=== PATIENT | male | born 1990 | race Caucasian/White ===

== ENCOUNTER 2017-03-12 06:16 | Emergency (ER) | payer BC, OTHER ==
--- NOTE | 2017-03-12 07:10 | ER Document Report ---
ED Neck/Back Problem - General Mode of Arrival: Ambulatory Information source: Patient TRAVEL OUTSIDE OF THE [place] IN LAST 30 DAYS: No - HPI Patient complains to provider of: Neck - swelling Associated symptoms: Other - See above - General Chief Complaint: Neck Swelling Stated Complaint: NECK PAIN Time Seen by Provider: 03/12/17 06:40 Notes: Patient is a 26 year old male who presents to the emergency department complaining of neck swelling onset this morning. Patient reports he woke up to take his dog out and noticed swelling underneath his jaw. Patient reports he has a history of testicular cancer 6 years ago that presented with pain. Patient denies difficulty breathing, mouth pain, dental problems, sore throat, ear pain, and cough. (CHINO GOMEZ) - Related Data Allergies/Adverse Reactions: Sulfa (Sulfonamide Antibiotics) Allergy (Verified 03/12/17 06:24) Past Medical History - General Information source: Patient - Social History Smoking Status: Unknown if Ever Smoked Family History: Reviewed & Not Pertinent Patient has suicidal ideation: No Patient has homicidal ideation: No Malignancy Medical History: Reports Hx Testicular Cancer Review of Systems - Review of Systems EENT: See HPI, Other - neck swelling. denies: Ear pain, Throat pain, Difficulty swallowing, Mouth pain, Dental problem Respiratory: denies: Cough, Other - difficulty breathing Physical Exam - Vital signs Interpretation: Normal - General General appearance: Appears well, Alert - HEENT Head: Normocephalic, Atraumatic Ears: Normal External canal: Normal Tympanic membrane: Normal Mouth/Lips: Normal Pharynx: Normal - Respiratory Respiratory status: No respiratory distress - Extremities General upper extremity: Normal inspection General lower extremity: Normal inspection - Neurological Neuro grossly intact: Yes Cognition: Normal Orientation: AAOx4 Vitaly Coma Scale Eye Opening: Spontaneous Vitaly Coma Scale Verbal: Oriented Jean Coma Scale Motor: Obeys Commands Jean Coma Scale Total: 15 Speech: Normal - Psychological Associated symptoms: Normal affect, Normal mood - Skin Skin Temperature: Warm Skin Moisture: Dry Skin Color: Normal Course - Re-evaluation Re-evalutation: 03/12/17 08:53 Patient presents emergency department woke up this morning with small lymph nodes under his submandibular region. It is painless no fevers chills cough difficulty breathing swallowing on examination mildly swollen lymph node under the mandibular region which is not red hot or swollen is mobile. Trachea is midline neck is supple there is no trismus stridor or drooling full range of motion of neck without any difficulties no intraoral lesions or dental problems. CT scan shows adenopathy. Strep test is negative. Concern at this point is that the patient has a history of cancer discussed this nonspecific lymphadenopathy. Have him follow-up with hematology oncology may need further assessment and/or biopsy if they have concerns. Started on an antibiotic and gave him the name for information and discussed reasons for ED return sooner I am on (SARAH BETH LOPEZ) - Vital Signs Vital signs: Temp Pulse Resp BP Pulse Ox 97.4 F 78 18 142/91 H 98 03/12/17 09:15 03/12/17 09:15 03/12/17 09:15 03/12/17 09:15 03/12/17 09:15 Discharge - Discharge Clinical Impression: Adenopathy Condition: Stable Disposition: HOME, SELF-CARE Additional Instructions: Lymphadenopathy You have enlargement of lymph glands, called lymphadenopathy. Lymph glands filter tissue fluids. They help to fight infection. Most of the time, enlarged lymph glands are not serious. Lymph glands may react to a viral or bacterial infection by becoming swollen and painful. When the infection goes away, the glands shrink. Sometimes a lymph gland will remain enlarged for a long time after an infection. Occasionally, a lymph gland may be overwhelmed by infection and form an abscess. If an enlarged lymph gland has signs that are suspicious for tumor, the doctor will recommend a biopsy. A suspicious gland usually is NOT painful, grows very slowly, and is rock-hard to touch. See the doctor or return if there is increasing swelling and redness, high fever, difficulty breathing, or any other change for the worse. Prescriptions: Amox Tr/Potassium Clavulanate [Augmentin 875-125 Tablet] 1 tab PO BID 10 Days Referrals: CECILLE MOORE MD [ACTIVE STAFF] - Follow up in 3-5 days (Call for appointment to be seen in follow-up in 3-5 days also follow primary care physician in 2-3 days return for increasing worsening or new symptoms) Scribe Attestation: 03/12/17 08:5 I personally performed the services described in the documentation reviewed the documentation recorded by my scribe in my presence and it accurately and completely records my words and actions (SARAH BETH LOPEZ) Scribe Documentation - Scribe Written by Ayse:: ayse Roca, 03/12/17, 0734 acting as scribe for :: Devin
[2017-03-12 09:19] VITALS: BP 142/91
== END 2017-03-12 09:27 | disposition home or self-care (01) ==
LOC: ER 06:16
DX: R59.0 Localized enlarged lymph nodes (principal); M54.2 Cervicalgia; Z85.47 Personal history of malignant neoplasm of testis; Z88.2 Allergy status to sulfonamides
CPT/HCPCS: 70491; 87070; 87880; 99284